=== PATIENT | male | born 1960 | race Two or more races ===

== ENCOUNTER 2024-09-14 15:00 | Outpatient (RCR) | payer MEDICAID, SELFPAY ==
--- NOTE | 2024-09-01 15:09 | PT.OIERPT ---
PT OP Initial Eval Patient Information Outpatient Physical Therapy Treatment Date: 09/01/24 Visit Reasons: Gait and mobility Medical Diagnosis: R26.9 Treatment Dx #1: L foot and ankle weakness Start of Care: 09/01/24 Date of Onset: 5 yrs ago Smoking Status Smoking Status: Former smoker Tobacco Use: Cigarette Years smoked: 20 Are you interested in quitting?: No Would you like additional Smoking Cessation Counseling?: No Initial Assessment Subjective: Pt is 63 yr old samoan speaking male who fell from 5' high and injured the L foot in 2019 reports difficulty walking fast, jogging or longer distances. He says he can hardly move the L foot and toes that get numb and feels cold. Pt denies LBP. PMH: HTN, type 2 DM with polyneuropathy Imaging: with provider Pt goal: to work with less numbness Objective: L ankle AROM: DF: 5 deg Plantarflexion: to 45 deg Inv/Eversion 15 deg Strength: Ankle DF 3+/5, PF: 4-/5 Heel raise B: unable L toe AROM: very limited into flexion and extension. TTP: non-TTP of foot and ankle Sensation: diminished to light touch of L foot lateral aspect Assessment: Pt presents with L foot diminished sensation and strength. Pt is unable to heel raise with both feet and ambulates with decreased WB on L. Pt may benefit from skilled therapy to meet goals and has guarded rehab potential since it's unclear why his L foot is numb whether it's the diabetic neuropathy or the fall or both. 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 Ind with HEP 2. Heel raise to 50% height x3 reps 3. Tolerate work duties with 50% less numbness of L foot. 4. Pt will ambulate with symmetrical pattern x community distances Treatment Plan 1. Manual therapy ? 2. Therex ? 3. Modalities as indicated, moist heat, ice, TENS Frequency and Duration: Pt has 1 visit authorized and then will need additional visits authorized. 1-2x a week for 8 visits after that. Certification Dates: 09/01/24 to 10/31/24 Procedure Charges OP PT Eval Mod Complex 30 minutes: Yes
--- NOTE | 2024-09-14 18:27 | PT.ODAYNRPT ---
PT Outpatient Daily Note OP Daily Note Outpatient Physical Therapy Treatment Date: 09/14/24 Visit Reasons: Gait and mobility Subjective: Same as evaluation Objective: See F/S for therex Assessment: Good strength with low tissue irritability Plan: Continue per POC Length of Time (minutes) of Treatment: 30 Minutes Procedure Charges Therapeutic Exercise 30 minutes: Yes
== END 2024-09-16 23:59 | disposition home or self-care (01) ==
LOC: CPTX 15:00
PROVIDERS: PCP Podiatrist; Referring Provider Podiatrist; Visit Provider Podiatrist
DX: R26.2 Difficulty in walking, not elsewhere classified (principal); R53.1 Weakness; E11.42 Type 2 diabetes mellitus with diabetic polyneuropathy; S99.922D Unspecified injury of left foot, subsequent encounter; W17.89XD Other fall from one level to another, subsequent encounter; I10 Essential (primary) hypertension
CPT/HCPCS: 97110; 97162

== ENCOUNTER 2024-10-29 14:39 | Outpatient (RCR) | payer MEDICAID, SELFPAY ==
--- NOTE | 2024-10-29 18:04 | PT.ODS1RPT ---
PT OP Progress/Discharge Note Date of Service: 10/29/24 Progress Note/DC Note Progress Note/Discharge Note: DC Note Patient Information Visit Reasons: Gait and mobility Service Continue Service or Discharge: Discharge Discharge Date: 10/29/24 Status Assessment: Pt attended the eval and 1 authorized Rx visit and then returned to provider for more authorization and we started again with a new evaluation with the new authorization and order so this chart will be discharged. Plan: D/C
--- NOTE | 2024-10-29 18:11 | PT.OIERPT ---
PT OP Initial Eval Patient Information Outpatient Physical Therapy Treatment Date: 10/29/24 Visit Reasons: Gait and mobility Medical Diagnosis: R26.9 Treatment Dx #1: L foot and ankle weakness Start of Care: 10/29/24 Date of Onset: 5 yrs ago Smoking Status Smoking Status: Former smoker Years smoked: 20 Initial Assessment Subjective: Pt is 64 yr old telugu speaking male who fell from 5' high and injured the L foot in 2019 reports difficulty walking fast, jogging or uneven surfaces. He says he can hardly move the L foot and toes that get numb and feels cold. Pt reports LBP and had lumbar surgery. PMH: HTN, type 2 DM with polyneuropathy, lumbar surgery 10/04/17 Imaging: with provider Pt goal: to work with less numbness in L foot Objective: L ankle AROM: DF: 5 deg Plantarflexion: to 45 deg Inv/Eversion 15 deg Strength: Ankle DF 3+/5, PF: 4-/5 Heel raise B: unable L toe AROM: very limited into flexion and extension. TTP: non-TTP of foot and ankle Sensation: diminished to light touch of L foot lateral aspect Assessment: Pt presents with L foot diminished sensation and strength. Pt is unable to heel raise with both feet and ambulates with decreased WB on L. Pt may benefit from skilled therapy to meet goals and has guarded rehab potential since it's unclear why his L foot is numb whether it's the diabetic neuropathy or the fall or Hx of lumbar surgery. 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 Ind with HEP 2. Heel raise to 50% height x3 reps 3. Tolerate work duties with 50% less numbness of L foot. 4. Pt will ambulate with symmetrical pattern x community distances Treatment Plan ?1. Manual therapy ? 2. Therex ? 3. Modalities as indicated, moist heat, ice, estim Frequency and Duration: 1-2x a week for 12 visits Certification Dates: 10/29/24 to 01/28/25 Procedure Charges OP PT Eval Mod Complex 30 minutes: Yes
== END 2024-11-16 23:59 | disposition home or self-care (01) ==
LOC: CPTX 14:39
PROVIDERS: PCP Podiatrist; Referring Provider Podiatrist; Visit Provider Podiatrist
DX: R53.1 Weakness (principal); R26.2 Difficulty in walking, not elsewhere classified; R20.0 Anesthesia of skin; R20.8 Other disturbances of skin sensation; M54.50 Low back pain, unspecified; I10 Essential (primary) hypertension; E11.9 Type 2 diabetes mellitus without complications
CPT/HCPCS: 97162

== ENCOUNTER → 2025-03-10 | Outpatient (CLI) | payer MEDICAID, SELFPAY ==
--- NOTE | 2025-03-10 16:02 | XR_ITS ---
Examination: Wrist, right 3 views Technique: Wrist AP, oblique, lateral 3 views Date and time of exam: March 10, 2025, 1608 hours INDICATIONS: Fracture injury to the wrist 1 month ago FINDINGS: Acute comminuted fractures distal radial metaphysis with angulation of the articulating surface of the radius toward the ulnar side On the lateral view alignment appears satisfactory Acute comminuted fractures distal ulna Carpal bones intact IMPRESSION: Acute comminuted fractures distal radius and ulna
--- NOTE | 2025-03-10 16:02 | XR_ITS ---
Examination: Hand, right 3 views Technique: Hand AP, oblique, lateral 3 views Date and time of exam: March 10, 2025, 1608 hours INDICATIONS: Wrist fractures 1 month ago. FINDINGS: Severely comminuted fractures distal radius distal ulna with significant angulation on the oblique and AP views of the radial metaphyseal fracture On the lateral view alignment appears satisfactory Bones of the hand intact IMPRESSION: Acute comminuted fractures distal radius distal ulna
== END | disposition home or self-care (01) ==
PROVIDERS: PCP Family Medicine; Referring Provider Nurse Practitioner Gerontology; Visit Provider Nurse Practitioner Gerontology
DX: S52.91XA Unspecified fracture of right forearm, initial encounter for closed fracture (principal); X58.XXXA Exposure to other specified factors, initial encounter; S52.251A Displaced comminuted fracture of shaft of ulna, right arm, initial encounter for closed fracture
CPT/HCPCS: 73110; 73130